=== PATIENT | female | born 1990 | race Caucasian/White ===

== ENCOUNTER 2016-09-06 12:50 | Emergency (ER) | payer BC, OTHER ==
[~2016-09-06] VITALS: Ht 170.2 cm; Wt 77.4 kg
[~2016-09-06 12:50] MED LIST: BCPILLS PO; DIAZ-165 PO; PRED20TA PO
[2016-09-06 12:55] VITALS: Ht 170.2 cm; Wt 77.4 kg
[2016-09-06] MEDS ORDERED: MELO7.5T5 PO (13:14)
[2016-09-06] MEDS ORDERED: ONDANSETRON INJ 2 MG/ML 2 ML VIAL IV STA (14:02)
[2016-09-06] MEDS ORDERED: SODIUM CHLORIDE 0.9% 1000ML 1,000 ML IV STA (14:02)
[2016-09-06] MEDS ORDERED: MoRPHine SULFATE 4 MG/ML 1 ML CARP\\VIAL IV STA (14:02)
--- NOTE | 2016-09-06 14:27 | DIAGNOSTIC IMAGING REPORT ---
SINGLE VIEW CHEST CLINICAL HISTORY: Atypical chest pain. FINDINGS: An AP, portable, upright chest radiograph is compared to chest x-ray and chest CT dated 12/19/2015. The cardiomediastinal silhouette is unremarkable. The lungs and pleural spaces are clear. No pneumothorax is seen. The bony thorax is grossly intact. IMPRESSION: No active disease in the chest. Electronically signed by: Eddie Patino M.D. 09/06/2016 2:26 PM Dictated Date/Time: 09/06/2016 2:25 PM
[2016-09-06 14:35] LABS: URINE APPEARANCE CLEAR (CLEAR); URINE BILIRUBIN NEG (NEG); URINE COLOR YELLOW; URINE NITRITE NEG (NEG); URINE PH 7.5 (4.5-7.5); URINE SPECIFIC GRAVITY 1.006 (1.000-1.030); UROBILINOGEN NEG (NEG)
[2016-09-06 14:43] LABS: BASO % 0.5 %; BASO ABS # 0.04 K/uL (0-0.2); COMPLETE YES; EOS % 2.9 %; HEMATOCRIT 41.1 % (37-47); IG% 0.2 %; LYMPH % 30.3 %; LYMPH ABS # 2.51 K/uL (1.2-3.4); MEAN CELL VOLUME 86.9 fL (80-100); MEAN CORPUSCULAR HEMOGLOBIN 30.7 pg (25-34); MEAN CORPUSCULAR HGB CONC 35.3 g/dl (32-36); MEAN PLATELET VOLUME 10.9 fL (7.4-10.4); MONO % 4.9 %; NEUT % 61.2 %; PLATELET COUNT 241 K/uL (130-400); RED BLOOD COUNT 4.73 M/uL (4.2-5.4); WHITE BLOOD COUNT 8.29 K/uL (4.8-10.8)
[2016-09-06 14:46] LABS: MANUAL MICROSCOPIC REQUIRED? NO; REVIEW REQ? NO
[2016-09-06 15:02] LABS: ALT/SGPT 18 U/L (12-78); BLOOD UREA NITROGEN 9 mg/dl (7-18); BUN/CREATININE RATIO 10.6 (10-20); CALCIUM 9.4 mg/dl (8.5-10.1); CARBON DIOXIDE 25 mmol/L (21-32); CHLORIDE 105 mmol/L (98-107); CREATININE 0.81 mg/dl (0.60-1.20); GLUCOSE 85 mg/dl (70-99); SODIUM 140 mmol/L (136-145)
[2016-09-06 15:10] LABS: PREG INTERNAL NEGATIVE QC NEG CLEAR BACKGROUND; PREG INTERNAL POSITIVE QC POS CONTROL LINE
[2016-09-06 15:13] LABS: ALKALINE PHOSPHATASE 68 U/L (45-117); AST/SGOT 14 U/L (15-37)
[2016-09-06 15:41] VITALS: TEMP 36.6
[2016-09-06 15:48] LABS: BENZODIAZEPINE, URINE NEG (NEG); COCAINE,URINE NEG (NEG); PHENCYCLIDINE, URINE NEG (NEG)
--- NOTE | 2016-09-06 16:25 | DIAGNOSTIC IMAGING REPORT ---
CT HEAD WITHOUT CONTRAST (CT) CLINICAL HISTORY: severe headaches, flashing lights COMPARISON STUDY: 05/01/2016 TECHNIQUE: Axial CT of the brain is performed from the vertex to the skull base. IV contrast was not administered for this examination. CT DOSE: 580.48 mGy.cm FINDINGS: No intra or extra-axial mass lesions are visualized. There is no CT evidence of acute cortical infarction. There is no evidence of midline shift. There is no acute hemorrhage. No calvarial fractures are visualized. There is no evidence of pathologic ventricular dilatation. There is a small left maxillary sinus retention cyst IMPRESSION: No acute intracranial findings Electronically signed by: Andi King M.D. 09/06/2016 4:24 PM Dictated Date/Time: 09/06/2016 4:23 PM
[2016-09-06 17:05] VITALS: BP 119/48; PULSE 53; O2SAT 99
--- NOTE | 2016-09-06 22:25 | EMERGENCY ROOM VISIT NOTE ---
ED Visit Note First contact with patient: 13:31 Chief Complaint: Chest pain and headaches. History of Present Illness: Ms. Reynaga is a 26 year-old white female who ambulates into the ED complaining of left sided chest pain and headaches. Historically patient reports no significant past medical history. Patient reports ongoing intermittent chest pain and headaches that started approximately 3 weeks ago. She reports her to she complaints occur at the same time. She describes her chest pressure as a stabbing sensation over the left sternal border. Her discomfort does radiate into the back. She rates her discomfort 7/10. She has not identified any aggravating or alleviating factors related to the pain. It can occur with any activity or at any time; but most frequently with rest, after eating and driving a car. Associated with her chest pain she does report she experiences palpitations, shortness of breath, sensations like she is going to pass out and nausea with 1 episode of vomiting. Additionally she reports when she has this discomfort she develops headaches. She reports the discomfort starts behind both eyes radiates to the top of the head and down the posterior aspect of the head. She describes this as an achy sensation. At its worse she rates her discomfort 9/10. She has not identified any aggravating or alleviating factors related to this pain. She has been taking some ibuprofen which helps "a little" with both discomfort. Associated with her pain she also reports she develops flashing lights in all visual chase in both eyes. The flashing lights can also occur without headache or chest pain and spontaneously resolve. Additionally she reports for the last 3 days she has had multiple stools that are black in color and are loose. This is not associated with the other symptoms. Lastly she does go on to report that she has a very stressful job and has been personally on-call for her job for the last 6 months and is starting to feel very stressed at work. She does have risk factors for DVT including tobacco and estrogen use. Patient denies fevers, chills, sweats, skin eruptions, skin color changes, upper respiratory tract symptoms, wheezing, cough, hemoptysis, orthopnea, dependent edema, previous clots, claudication, cramping, recent surgery/ inactivity/extended travel, abdominal pain, nausea, vomiting, diarrhea, constipation, rectal bleeding, urinary symptoms, back/flank pain. Review of Systems: As noted above in history of present illness. All body systems were reviewed and found to be negative as noted above. Past Medical History: Kidney stones. Current Medications: Medications Dose Route/Sig Max Daily Dose Days Date Category Mobic (Meloxicam) 7.5 Mg Tab 7.5 Mg PO DAILY 09/06/16 Reported Control Pills (Miscellaneous) Tab 1 Tab PO DAILY 05/01/16 Reported Allergies to Medications: Patient denies. Social History: Patient is currently employed; she lives with her and feels safe in her home environment; she admits to tobacco and alcohol use. Physical Examination: Vital Signs: Date Time Temp Pulse Resp B/P Pulse Ox O2 Delivery O2 Flow Rate FiO2 09/06/16 17:05 53 16 119/48 99 09/06/16 15:41 36.6 59 16 110/67 99 Room Air 09/06/16 14:53 65 09/06/16 14:48 64 16 115/71 09/06/16 12:55 36.9 78 18 132/84 96 Room Air GENERAL: 26-year-old female in mild distress due to symptoms, nontoxic-appearing , afebrile and hemodynamically stable. Patient is anxious and tearful. NEUROLOGICAL: Awake, alert and oriented to person, place and time. Answering questions appropriately and following commands. Normal gait. Good hand eye coordination. Cranial nerves II through XII grossly intact. No facial droop. Good short-term and long-term recall. SKIN: Warm, dry and pink. No soft tissue eruptions or trauma noted. HEENT: Atraumatic and normocephalic. PERRL. Sclera white and conjunctiva pink. Oral cavity moist and pink. Pharynx is nonerythematous or edematous. Speech normal. No lymphadenopathy. Trachea midline. No jugular venous distention. BACK: No tenderness over the bony spine. No CVA tenderness. THORAX: Lungs sounds are clear to auscultation and equal bilaterally with symmetrical chest wall. No wheezing, rales or rhonchi. No crepitus, tenderness , subcutaneous air or deformities noted. HEART: Regular rate and rhythm. No gallops, rubs or murmurs are appreciated. No lifts, heaves or thrills. PMI is not displaced. ABDOMEN: Flat, soft and nontender. Positive bowel sounds in all quadrants. No guarding, rigidity or organomegaly. EXTREMITIES: Moves all extremities well on command and with purpose. All distal neurovascular statuses are intact and equal bilaterally. No dependent edema or calf tenderness/cords. ED Course: Patient is assessed as noted above. Laboratory Testing: Test 09/06/16 14:10 09/06/16 14:15 09/06/16 14:19 Range/Units Urine Color YELLOW Urine Appearance CLEAR CLEAR Urine pH 7.5 4.5-7.5 Urine Specific [place] 1.006 1.000-1.030 Urine Protein NEG NEG Urine Glucose (UA) NEG NEG Urine Ketones NEG NEG Urine Occult Blood NEG NEG Urine Nitrite NEG NEG Urine Bilirubin NEG NEG Urine Urobilinogen NEG NEG Urine Leukocyte Esterase NEG NEG Urine Opiates Screen NEG NEG Urine Methadone, Qualitative NEG NEG Urine Barbiturates NEG NEG Urine Phencyclidine (PCP) Level NEG NEG Ur Amphetamine/Methamphetamine NEG NEG MDMA (Ecstasy) Screen NEG NEG Urine Benzodiazepines Screen NEG NEG Urine Cocaine Metabolite NEG NEG Urine Marijuana (THC) NEG NEG White Blood Count 8.29 4.8-10.8 K/uL Red Blood Count 4.73 4.2-5.4 M/uL Hemoglobin 14.5 12.0-16.0 g/dL Hematocrit 41.1 37-47 % Mean Corpuscular Volume 86.9 80-100 fL Mean Corpuscular Hemoglobin 30.7 25-34 pg Mean Corpuscular Hemoglobin Concent 35.3 32-36 g/dl Platelet Count 241 130-400 K/uL Mean Platelet Volume 10.9 7.4-10.4 fL Neutrophils (%) (Auto) 61.2 % Lymphocytes (%) (Auto) 30.3 % Monocytes (%) (Auto) 4.9 % Eosinophils (%) (Auto) 2.9 % Basophils (%) (Auto) 0.5 % Neutrophils # (Auto) 5.07 1.4-6.5 K/uL Lymphocytes # (Auto) 2.51 1.2-3.4 K/uL Monocytes # (Auto) 0.41 0.11-0.59 K/uL Eosinophils # (Auto) 0.24 0-0.5 K/uL Basophils # (Auto) 0.04 0-0.2 K/uL RDW Standard Deviation 40.1 36.4-46.3 fL RDW Coefficient of Variation 12.4 11.5-14.5 % Immature Granulocyte % (Auto) 0.2 % Immature Granulocyte # (Auto) 0.02 0.00-0.02 K/uL Sodium Level 140 136-145 mmol/L Potassium Level 4.0 3.5-5.1 mmol/L Chloride Level 105 98-107 mmol/L Carbon Dioxide Level 25 21-32 mmol/L Anion Gap 10.0 3-11 mmol/L Blood Urea Nitrogen 9 7-18 mg/dl Creatinine 0.81 0.60-1.20 mg/dl Est Creatinine Clear Calc Drug Dose 114.8 ml/min Estimated GFR () 117.8 Estimated GFR (Non- 101.7 BUN/Creatinine Ratio 10.6 10-20 Random Glucose 85 70-99 mg/dl Calcium Level 9.4 8.5-10.1 mg/dl Total Bilirubin 0.3 0.2-1 mg/dl Direct Bilirubin < 0.1 0-0.2 mg/dl Aspartate Amino Transf (AST/SGOT) 14 15-37 U/L Alanine Aminotransferase (ALT/SGPT) 18 12-78 U/L Alkaline Phosphatase 68 45-117 U/L Total Creatine Kinase 78 26-192 U/L Creatine Kinase MB < 0.5 0.5-3.6 ng/ml Creatine Kinase MB Ratio 0-3.0 Total Protein 8.1 6.4-8.2 gm/dl Albumin 4.1 3.4-5.0 gm/dl Lipase 120 73-393 U/L Thyroid Stimulating Hormone (TSH) 1.170 0.300-4.500 uIu/ml Human Chorionic Gonadotropin, Qual NEG NEG Bedside D-Dimer 221 0-450 ng/mlFEU Bedside Troponin I 0.000 0-0.045 ng/ml Radiological Testing: Chest X-Rays: Were read by myself and radiologist showing no acute infiltrates , effusions or pneumothorax. Normal heart silhouette and bony anatomy. This was compared to previous and no acute changes were noted. Head CT: Was reviewed by myself and read by the radiologist showing no acute intracranial abnormalities or skull fractures. EKG: Was read by myself and reviewed with Dr. Crockett; shows sinus bradycardia with a ventricular rate of 50 bpm. Marked sinus arrhythmia. Normal intervals and complexes. No acute ST changes indicating ischemia, injury or infarction. His medical records are reviewed and no previous health for comparison. Patient was hydrated with normal saline and received 4 mg of morphine IV for pain. Patient was reassessed multiple times during her stay in the emergency department. Patient's case was reviewed with Dr. Crockett; we agreed on diagnostic approach, treatment, disposition and plan. Patient was educated about tonight's findings and instructed on her treatment plan; she verbalizes understanding and agreement with this plan. Clinical Impression: Left-sided chest pain. Headaches. Decision-Making: Initially my differential diagnosis for her chest pain I considered acute coronary syndrome, thoracic aneurysm, pneumothorax, pneumonia, pulmonary embolism, musculoskeletal disorder, anxiety and for her headaches I considered intracranial bleed, mass effect, sinusitis, meningitis, migraine headaches, and other causes. Disposition: Patient discharged home in stable condition accompanied by her ; prior to departure she was reassessed and subjectively reported she was pain and symptom-free. Plan: Patient was encouraged to alternate ibuprofen and acetaminophen as needed for pain. Patient was encouraged to stay well-hydrated and avoid alcohol and tobacco use. Patient was encouraged to follow-up with personal physician for recheck in 2-3 days for recheck and possible referral for anxiety. Patient was encouraged return the ED for worsening symptoms, fevers, any new or abnormal neurological symptoms or any new/concerning symptoms.
== END 2016-09-06 17:06 | disposition home or self-care (01) ==
LOC: C.EDB 12:50
DX: R07.9 Chest pain, unspecified (principal); R51 Headache; Z87.442 Personal history of urinary calculi

== ENCOUNTER 2016-12-28 12:26 | Emergency (ER) | payer BC ==
[~2016-12-28] VITALS: Ht 170.2 cm; Wt 79.0 kg
[~2016-12-28 12:26] MED LIST changes: -DIAZ-165 PO; +MELO7.5T5 PO; -PRED20TA PO
[2016-12-28 12:37] VITALS: TEMP 36.7; Ht 170.2 cm; Wt 79.0 kg
[2016-12-28] MEDS ORDERED: DICYCLOMINE HCL 20 MG TAB PO STA (13:15)
[2016-12-28] MEDS ORDERED: KETOROLAC TROMETHAMINE 30 MG/ML VIAL IV STA (13:15)
[2016-12-28 13:38] LABS: URINE APPEARANCE CLEAR (CLEAR); URINE BILIRUBIN NEG (NEG); URINE NITRITE NEG (NEG); URINE PH 6.5 (4.5-7.5); UROBILINOGEN NEG (NEG); ZZUR CULT IF INDIC CLEAN CATCH NO
[2016-12-28 13:38] LABS: BASO % 0.3 %; BASO ABS # 0.02 K/uL (0-0.2); COMPLETE YES; EOS % 1.9 %; HEMATOCRIT 41.8 % (37-47); IG% 0.1 %; LYMPH % 36.5 %; LYMPH ABS # 2.44 K/uL (1.2-3.4); MEAN CELL VOLUME 87.6 fL (80-100); MEAN CORPUSCULAR HEMOGLOBIN 29.4 pg (25-34); MEAN CORPUSCULAR HGB CONC 33.5 g/dl (32-36); MEAN PLATELET VOLUME 10.3 fL (7.4-10.4); MONO % 6.1 %; NEUT % 55.1 %; PLATELET COUNT 245 K/uL (130-400); RED BLOOD COUNT 4.77 M/uL (4.2-5.4); WHITE BLOOD COUNT 6.68 K/uL (4.8-10.8)
[2016-12-28 13:44] LABS: MANUAL MICROSCOPIC REQUIRED? NO; REVIEW REQ? NO
[2016-12-28 13:44] LABS: BUN/CREATININE RATIO 7.8 (10-20); CREATININE 0.74 mg/dl (0.60-1.20); POTASSIUM 3.8 mmol/L (3.5-5.1)
[2016-12-28 13:45] LABS: URINE COLOR YELLOW
[2016-12-28 13:47] LABS: ALB/GLOB RATIO 1.2 (0.9-2)
--- NOTE | 2016-12-28 14:41 | DIAGNOSTIC IMAGING REPORT ---
ULTRASOUND RIGHT UPPER QUADRANT ABDOMEN CLINICAL HISTORY: Right upper quadrant abdominal pain. COMPARISON STUDY: Abdominal CT dated 05/15/2015. TECHNIQUE: Real-time, grayscale, and color flow sonography of the right upper quadrant of the abdomen was performed. Images are reviewed in the transverse and longitudinal planes. FINDINGS: Liver: The liver is normal in size and echotexture. There is no intrahepatic biliary ductal dilatation. The main portal vein is patent. Gallbladder: The gallbladder is normal in appearance. No gallstones are identified. There is no gallbladder wall thickening or pericholecystic fluid. A sonographic Recinos's sign is reportedly absent. The common bile duct measures up to 0.3 cm in diameter. Pancreas: Visualized portions of the pancreatic head and body are normal in appearance. The splenic vein is patent. Right kidney: Survey images of the right kidney demonstrate normal size and echotexture. There is no hydronephrosis. Ascites: None. IMPRESSION: Unremarkable sonographic assessment of the right upper quadrant. No gallstones are identified. Electronically signed by: Eddie Patino M.D. 12/28/2016 2:40 PM Dictated Date/Time: 12/28/2016 2:39 PM
[2016-12-28] MEDS ORDERED: METOCLOPRAMIDE HCL INJ 5 MG/ML 2 ML VIAL IM STA (14:57)
[2016-12-28] MEDS ORDERED: ALUMINUM/MAGNESIUM SUSP 30 ML UDC PO STA (14:57)
[2016-12-28] MEDS ORDERED: DiphenhydrAMINE HCL 50 MG/ML VIAL IV STA (14:57)
[2016-12-28] MEDS ORDERED: SODIUM CHLORIDE 0.9% 1000ML 1,000 ML IV STA (14:57)
[2016-12-28] MEDS ORDERED: METOCLOPRAMIDE HCL INJ 5 MG/ML 2 ML VIAL IV STA (15:20)
[2016-12-28] MEDS ORDERED: FENTANYL CITRATE INJ 50 MCG/1 ML 2 ML VIAL IV STA (17:19)
[2016-12-28] MEDS ORDERED: OPTIRAY 320 IV PRN (17:30)
--- NOTE | 2016-12-28 17:56 | DIAGNOSTIC IMAGING REPORT ---
CT OF THE ABDOMEN AND PELVIS WITH CONTRAST CLINICAL HISTORY: Central/mid epigastric abdominal pain. COMPARISON STUDY: CT of the abdomen and pelvis May 15, 2015 and right upper quadrant ultrasound December 28, 2016. TECHNIQUE: Following IV administration of 110 mL of [id number]-[id number], axial images of the abdomen and pelvis were obtained from the lung bases to the proximal femurs. Images were reviewed in the axial, sagittal, and coronal planes. IV contrast was administered without complication. Oral contrast was administered. CT DOSE: 387.51 mGy.cm FINDINGS: The liver, spleen, adrenal glands, kidneys and pancreas are normal there is no hydronephrosis. There is no biliary or pancreatic ductal dilatation. There is no peripancreatic infiltration. The caliber and wall thickness of small and large bowel are normal. The appendix is normal. The ovaries are not enlarged. There is a 2 cm dominant follicle within the right ovary. There is no lymphadenopathy. No suspicious skeletal lesions are identified. IMPRESSION: No acute process within the abdomen or pelvis. Electronically signed by: Nickolas Goff M.D. 12/28/2016 5:55 PM Dictated Date/Time: 12/28/2016 5:52 PM
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
[2016-12-28] MEDS ORDERED: DICY20TA35 PO (18:21)
[2016-12-28] MEDS ORDERED: METO-157 PO (18:21)
[2016-12-28 18:28] VITALS: BP 102/63; PULSE 47; O2SAT 98
== END 2016-12-28 18:29 | disposition home or self-care (01) ==
LOC: C.EDB 12:27 → C.EDA 18:29
DX: R10.11 Right upper quadrant pain (principal); R10.31 Right lower quadrant pain; R11.2 Nausea with vomiting, unspecified; R51 Headache; Z82.49 Family history of ischemic heart disease and other diseases of the circulatory system

== ENCOUNTER 2017-02-08 22:35 | Emergency (ER) | payer BC ==
[~2017-02-08] VITALS: Ht 170.2 cm; Wt 78.0 kg
[~2017-02-08 22:35] MED LIST changes: -BCPILLS PO; +METO-157 PO
[2017-02-08 22:36] VITALS: TEMP 36.7; Ht 170.2 cm; Wt 78.0 kg
[2017-02-08 23:15] LABS: BASO % 0.4 %; BASO ABS # 0.03 K/uL (0-0.2); COMPLETE YES; EOS % 2.1 %; HEMATOCRIT 39.2 % (37-47); IG% 0.1 %; LYMPH % 40.3 %; LYMPH ABS # 3.24 K/uL (1.2-3.4); MEAN CORPUSCULAR HEMOGLOBIN 29.7 pg (25-34); MEAN CORPUSCULAR HGB CONC 34.9 g/dl (32-36); MEAN PLATELET VOLUME 10.4 fL (7.4-10.4); MONO % 6.6 %; NEUT % 50.5 %; PLATELET COUNT 216 K/uL (130-400); RED BLOOD COUNT 4.61 M/uL (4.2-5.4); WHITE BLOOD COUNT 8.04 K/uL (4.8-10.8)
[2017-02-08 23:35] LABS: URINE APPEARANCE CLEAR (CLEAR); URINE BILIRUBIN NEG (NEG); URINE COLOR YELLOW; URINE NITRITE NEG (NEG); URINE PH 6.5 (4.5-7.5); URINE SPECIFIC GRAVITY 1.009 (1.000-1.030); UROBILINOGEN NEG (NEG); ZZUR CULT IF INDIC CLEAN CATCH NO
[2017-02-08 23:42] LABS: MANUAL MICROSCOPIC REQUIRED? NO; REVIEW REQ? NO
[2017-02-08 23:44] LABS: ALKALINE PHOSPHATASE 73 U/L (45-117); ALT/SGPT 22 U/L (12-78); BLOOD UREA NITROGEN 8 mg/dl (7-18); BUN/CREATININE RATIO 9.4 (10-20); CALCIUM 9.7 mg/dl (8.5-10.1); CARBON DIOXIDE 23 mmol/L (21-32); CHLORIDE 107 mmol/L (98-107); CREATININE 0.86 mg/dl (0.60-1.20); GLUCOSE 101 mg/dl (70-99); SODIUM 138 mmol/L (136-145)
[2017-02-09 00:12] LABS: POTASSIUM 3.4 mmol/L (3.5-5.1)
[2017-02-09 00:17] LABS: AST/SGOT 15 U/L (15-37)
[2017-02-09] MEDS ORDERED: PRLSR20 PO (00:31)
[2017-02-09] MEDS ORDERED: CYCL10TA6 PO (00:33)
[2017-02-09] MEDS ORDERED: BCPILLS PO (00:34)
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
[2017-02-09 01:15] VITALS: BP 103/62; PULSE 56; O2SAT 97
--- NOTE | 2017-02-09 06:41 | DIAGNOSTIC IMAGING REPORT ---
CHEST ONE VIEW PORTABLE CLINICAL HISTORY: Right upper quadrant abdominal pain COMPARISON STUDY: September 06, 2016 FINDINGS: The cardiac and mediastinal contours are normal. There is no evidence of focal pulmonary consolidation. There is no evidence of failure. No pleural effusions are visualized.[ No free intraperitoneal air is visualized IMPRESSION: No active disease in the chest. Electronically signed by: Andi King M.D. 02/09/2017 6:40 AM Dictated Date/Time: 02/09/2017 6:40 AM
--- NOTE | 2017-02-09 06:48 | DIAGNOSTIC IMAGING REPORT ---
BILIARY ULTRASOUND CLINICAL HISTORY: Right upper quadrant abdominal pain COMPARISON STUDY: 12/28/2016 FINDINGS: The pancreas is sonographically normal. The liver is sonographically normal. There is no right-sided hydronephrosis. The gallbladder is sonographically normal. There is no ductal dilatation. The common bile duct measures 3 mm. IMPRESSION: Normal biliary ultrasound. Electronically signed by: Andi King M.D. 02/09/2017 6:47 AM Dictated Date/Time: 02/09/2017 6:46 AM
== END 2017-02-09 01:16 | disposition home or self-care (01) ==
LOC: C.EDB 22:36
DX: R10.11 Right upper quadrant pain (principal); K90.0 Celiac disease; F17.210 Nicotine dependence, cigarettes, uncomplicated; Z79.3 Long term (current) use of hormonal contraceptives

== ENCOUNTER 2017-04-01 10:54 | Emergency (ER) | payer BC ==
[~2017-04-01] VITALS: Ht 170.2 cm; Wt 78.9 kg
[~2017-04-01 10:54] MED LIST changes: +BCPILLS PO; +CYCL10TA6 PO; -MELO7.5T5 PO; -METO-157 PO; +PRLSR20 PO
[2017-04-01 11:02] VITALS: Ht 170.2 cm; Wt 78.9 kg
[2017-04-01] MEDS ORDERED: ACETAMINOPHEN 500 MG TAB PO STA (11:52)
[2017-04-01] MEDS ORDERED: SODIUM CHLORIDE 0.9% 1000ML 1,000 ML IV STA (11:52)
[2017-04-01] MEDS ORDERED: CYM30 PO (12:09)
[2017-04-01] MEDS ORDERED: NORE-5 PO (12:09)
[2017-04-01] MEDS ORDERED: MULT-506 PO (12:09)
[2017-04-01] MEDS ORDERED: BIOT1TAB2 PO (12:09)
[2017-04-01 12:14] LABS: BASO % 0.5 %; BASO ABS # 0.03 K/uL (0-0.2); COMPLETE YES; EOS % 6.4 %; HEMATOCRIT 40.3 % (37-47); IG% 0.2 %; LYMPH ABS # 2.37 K/uL (1.2-3.4); MEAN CELL VOLUME 86.7 fL (80-100); MEAN CORPUSCULAR HGB CONC 33.5 g/dl (32-36); MONO % 5.8 %; NEUT % 49.1 %; PLATELET COUNT 214 K/uL (130-400); RED BLOOD COUNT 4.65 M/uL (4.2-5.4); WHITE BLOOD COUNT 6.23 K/uL (4.8-10.8)
[2017-04-01 12:21] LABS: BUN/CREATININE RATIO 14.4 (10-20); CALCIUM 8.7 mg/dl (8.5-10.1); CREATININE 0.73 mg/dl (0.60-1.20); POTASSIUM 3.8 mmol/L (3.5-5.1)
[2017-04-01 12:35] LABS: PARTIAL THROMBOPLASTIN RATIO 1.1; PROTHROMBIN TIME (PATIENT) 10.2 SECONDS (9.0-12.0)
--- NOTE | 2017-04-01 13:06 | DIAGNOSTIC IMAGING REPORT ---
HEAD WITHOUT CONTRAST (CT) CLINICAL HISTORY: 27 years-old Female with Evaluate for hemorrhage or pathology. Acute headache. TECHNIQUE: Multiple axial CT images of the head were obtained without contrast. A dose lowering technique was utilized adhering to the principles of ALARA. CT DOSE: 1577.26 mGycm COMPARISON: CT head 09/06/2016. FINDINGS: No acute intracranial hemorrhage, midline shift, mass, large territorial ischemia or abnormal extra-axial collection. The calvarium is intact. The paranasal sinuses, mastoid air cells, and middle ear cavities are clear. IMPRESSION: No acute intracranial abnormality. The above report was generated using voice recognition software. It may contain grammatical, syntax or spelling errors. Electronically signed by: Osiel Olvera M.D. 04/01/2017 1:05 PM Dictated Date/Time: 04/01/2017 1:03 PM
[2017-04-01] MEDS ORDERED: KETOROLAC TROMETHAMINE 30 MG/ML VIAL IV STA (13:20)
--- NOTE | 2017-04-01 13:33 | DIAGNOSTIC IMAGING REPORT ---
CHEST ONE VIEW PORTABLE HISTORY: 27 years-old Female Dizzy, IBRAHIM, bradycardia COMPARISON: Portable chest radiograph 02/08/2017 TECHNIQUE: Portable upright AP view of the chest FINDINGS: Cardiomediastinal and hilar silhouettes are within normal limits. No pneumothorax, pleural effusion, focal airspace consolidation or overt pulmonary edema. The bones are grossly intact. IMPRESSION: No acute cardiopulmonary process. The above report was generated using voice recognition software. It may contain grammatical, syntax or spelling errors. Electronically signed by: Osiel Olvera M.D. 04/01/2017 1:32 PM Dictated Date/Time: 04/01/2017 1:31 PM
[2017-04-01 13:40] LABS: LYME DISEASE AB IGG NEG (NEG)
[2017-04-01 14:42] LABS: LYME DISEASE AB IGM EQUIVOCAL (NEG)
[2017-04-01] MEDS ORDERED: NAPR-1169 PO (14:57)
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
[2017-04-01 15:45] VITALS: BP 124/71; PULSE 66; TEMP 36.7; O2SAT 100
[2017-04-06 11:08] LABS: 18KDIGG BAND NONREACTIVE (NONREACTIVE); 23KDIGG BAND REACTIVE (NONREACTIVE); 23KDIGM BAND REACTIVE (NONREACTIVE); 28KDIGG BAND NONREACTIVE (NONREACTIVE); 30KDIGG BAND NONREACTIVE (NONREACTIVE); 39KDIGG BAND NONREACTIVE (NONREACTIVE); 39KDIGM BAND NONREACTIVE (NONREACTIVE); 41KDIGG BAND REACTIVE (NONREACTIVE); 41KDIGM BAND NONREACTIVE (NONREACTIVE); 45KDIGG BAND NONREACTIVE (NONREACTIVE); 58KDIGG BAND NONREACTIVE (NONREACTIVE); 66KDIGG BAND NONREACTIVE (NONREACTIVE); 93KDIGG BAND NONREACTIVE (NONREACTIVE)
== END 2017-04-01 15:30 | disposition home or self-care (01) ==
LOC: C.EDB 10:55 → C.EDC 15:30
DX: G44.209 Tension-type headache, unspecified, not intractable (principal); R53.83 Other fatigue; F17.210 Nicotine dependence, cigarettes, uncomplicated; Z84.1 Family history of disorders of kidney and ureter; Z82.49 Family history of ischemic heart disease and other diseases of the circulatory system; Z79.899 Other long term (current) drug therapy

== ENCOUNTER 2017-05-30 16:23 | Emergency (ER) | payer BC ==
[~2017-05-30] VITALS: Ht 170.2 cm; Wt 77.0 kg
[~2017-05-30 16:23] MED LIST changes: -BCPILLS PO; +BIOT1TAB2 PO; -CYCL10TA6 PO; +CYM30 PO; +MULT-506 PO; +NORE-5 PO; -PRLSR20 PO
[2017-05-30 16:28] VITALS: BP 130/85; PULSE 83; TEMP 36.9; O2SAT 96; Ht 170.2 cm; Wt 77.0 kg
== END 2017-05-30 16:45 | disposition left against medical advice (07) ==
LOC: C.EDB 16:24
DX: R51 Headache (principal)

== ENCOUNTER 2017-10-15 09:22 | Emergency (ER) | payer BC ==
[~2017-10-15] VITALS: Ht 170.2 cm; Wt 81.9 kg
[2017-10-15 09:30] VITALS: TEMP 36.8; Ht 170.2 cm; Wt 81.9 kg
[2017-10-15] MEDS ORDERED: BCPILLS PO (09:43)
[2017-10-15] MEDS ORDERED: ESCI10TA17 PO (09:43)
[2017-10-15] MEDS ORDERED: BIOT1TAB5 PO (09:44)
[2017-10-15] MEDS ORDERED: ACETAMINOPHEN 500 MG TAB PO STA (10:51)
[2017-10-15] MEDS ORDERED: ONDANSETRON 4MG OD TAB PO STA (10:51)
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
[2017-10-15] MEDS ORDERED: ONDA4TAB10 SL (12:15)
[2017-10-15 12:48] VITALS: BP 113/67; PULSE 62; O2SAT 98
== END 2017-10-15 12:49 | disposition home or self-care (01) ==
LOC: C.EDB 09:23
DX: F07.81 Postconcussional syndrome (principal); R51 Headache; Z79.3 Long term (current) use of hormonal contraceptives; Z91.02 Food additives allergy status

== ENCOUNTER 2017-11-10 23:11 | Emergency (ER) | payer BC ==
[~2017-11-10] VITALS: Ht 170.2 cm; Wt 83.0 kg
[~2017-11-10 23:11] MED LIST changes: +BCPILLS PO; -BIOT1TAB2 PO; +BIOT1TAB5 PO; -CYM30 PO; +ESCI10TA17 PO; -NORE-5 PO; +ONDA4TAB10 SL
[2017-11-10 23:14] VITALS: TEMP 37; Ht 170.2 cm; Wt 83.0 kg
[2017-11-10] MEDS ORDERED: FAMOTIDINE 20MG/5ML IV PUSH IV STA (23:34)
[2017-11-10] MEDS ORDERED: ONDANSETRON INJ 2 MG/ML 2 ML VIAL IV STA (23:34)
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
[2017-11-10 23:47] LABS: BASO % 0.3 %; BASO ABS # 0.03 K/uL (0-0.2); EOS % 5.2 %; EOS ABS # 0.48 K/uL (0-0.5); HEMOGLOBIN 13.3 g/dL (12.0-16.0); IG# 0.01 K/uL (0.00-0.02); LYMPH % 37.8 %; LYMPH ABS # 3.49 K/uL (1.2-3.4); MEAN CELL VOLUME 85.6 fL (80-100); MEAN PLATELET VOLUME 9.5 fL (7.4-10.4); MONO % 5.7 %; MONO ABS # 0.53 K/uL (0.11-0.59); NEUT % 50.9 %; PLATELET COUNT 255 K/uL (130-400); RED CELL DISTRIBUTION WIDTH CV 12.7 % (11.5-14.5); RED CELL DISTRIBUTION WIDTH SD 39.7 fL (36.4-46.3); WHITE BLOOD COUNT 9.24 K/uL (4.8-10.8)
[2017-11-11 00:08] LABS: ALBUMIN 3.7 gm/dl (3.4-5.0); ALT/SGPT 28 U/L (12-78); BLOOD UREA NITROGEN 10 mg/dl (7-18); CALCIUM 9.1 mg/dl (8.5-10.1); CARBON DIOXIDE 25 mmol/L (21-32); CREATININE 0.91 mg/dl (0.60-1.20); GLUCOSE 98 mg/dl (70-99); LIPASE 154 U/L (73-393); POTASSIUM 3.5 mmol/L (3.5-5.1); SODIUM 136 mmol/L (136-145)
[2017-11-11 00:11] LABS: ALKALINE PHOSPHATASE 81 U/L (45-117); AST/SGOT 22 U/L (15-37); TOTAL PROTEIN 7.5 gm/dl (6.4-8.2)
[2017-11-11] MEDS ORDERED: KETOROLAC TROMETHAMINE 30 MG/ML VIAL IV STA (02:01)
[2017-11-11 02:52] VITALS: BP 110/61; PULSE 58; O2SAT 98
--- NOTE | 2017-11-11 07:12 | DIAGNOSTIC IMAGING REPORT ---
ABDOMINAL ULTRASOUND, RIGHT UPPER QUADRANT HISTORY: Right upper quadrant abdominal pain.. COMPARISON: Abdominal ultrasound 02/09/2017. FINDINGS: Pancreas: The pancreas demonstrates a normal echotexture. Liver: Unremarkable. Gallbladder: No gallbladder wall thickening. No gallstones. CBD: 3 mm. Right kidney: No hydronephrosis. IMPRESSION: No significant abnormality identified within the right upper quadrant. Electronically signed by: Justin Beasley M.D. 11/11/2017 7:11 AM Dictated Date/Time: 11/11/2017 7:10 AM
== END 2017-11-11 03:17 | disposition home or self-care (01) ==
LOC: C.EDB 23:13
DX: R10.11 Right upper quadrant pain (principal); K21.0 Gastro-esophageal reflux disease with esophagitis; K90.0 Celiac disease; Z83.79 Family history of other diseases of the digestive system; F17.210 Nicotine dependence, cigarettes, uncomplicated; Z79.3 Long term (current) use of hormonal contraceptives; Z79.899 Other long term (current) drug therapy; Z91.018 Allergy to other foods

== ENCOUNTER 2018-03-25 10:13 | Emergency (ER) | payer OTHER, BC ==
[~2018-03-25] VITALS: Ht 170.2 cm; Wt 83.7 kg
[~2018-03-25 10:13] MED LIST changes: -BIOT1TAB5 PO; +OMEP20CA9 PO; -ONDA4TAB10 SL
[2018-03-25 10:16] VITALS: TEMP 36.9; Ht 170.2 cm; Wt 83.7 kg
[2018-03-25] MEDS ORDERED: ESCI1TAB18 PO (10:44)
[2018-03-25] MEDS ORDERED: DEXAMETHASONE SOD INJ 4 MG/ML 5 ML VIAL IM STA (10:51)
[2018-03-25] MEDS ORDERED: DEXAMETHASONE SOD INJ 10 MG/ML VIAL ONE (10:55)
[2018-03-25] MEDS ORDERED: ACETAMINOPHEN 500 MG TAB PO STA (13:25)
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
[2018-03-25] MEDS ORDERED: PRED20TA2 PO (14:14)
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
[2018-03-25 14:25] VITALS: BP 122/75; PULSE 68; O2SAT 96
== END 2018-03-25 14:25 | disposition home or self-care (01) ==
LOC: C.EDB 10:15 → C.EDA 14:25
DX: M54.89 Other dorsalgia (principal); F17.210 Nicotine dependence, cigarettes, uncomplicated; Z82.49 Family history of ischemic heart disease and other diseases of the circulatory system; Z83.79 Family history of other diseases of the digestive system